=== PATIENT | male | born 1940 | race Caucasian/White ===

== ENCOUNTER 2019-05-31 20:00 | Inpatient (IN) | payer MEDICARE ==
[2019-05-31 20:48] LABS: Basophils # (A) 0.1 k/uL (0-0.2); Basophils % (A) 0 %; Eosinophils # (A) 0.1 k/uL (0-0.7); Eosinophils % (A) 0 %; HCT 40.1 % (39.0-53.0); HGB 13.8 gm/dL (13.0-17.5); Lymphocytes # (A) 0.7 k/uL (1.0-4.8); Lymphocytes % (A) 4 %; MCH 32.6 pg (25.0-35.0); MCHC 34.3 g/dL (31.0-37.0); MCV 94.9 fL (80.0-100.0); Mean Platelet Volume 8.7; Monocytes % (A) 5 %; Neutrophils # (A) 17.9 k/uL (1.3-7.7); Neutrophils % (A) 91 %; Platelet Count 237 k/uL (150-450); RBC 4.22 m/uL (4.30-5.90); RDW 12.4 % (11.5-15.5); WBC 19.8 k/uL (3.8-10.6)
[2019-05-31 20:50] LABS: Appearance,Urine Cloudy (Clear); Bilirubin,Urine Negative (Negative); Blood,Urine Large (Negative); Color,Urine Red; Glucose,Urine (UA) Negative (Negative); Ketones,Urine Negative (Negative); Leukocyte Esterase,Urine Moderate (Negative); Mucus,Urine Rare /hpf; Nitrite,Urine Negative (Negative); PH, Urine 6.5 (5.0-8.0); Protein,Urine 1+ (Negative); RBC,Urine >182 /hpf (0-5); Specific Gravity,Urine 1.016 (1.001-1.035); Urobilinogen,Urine <2.0 mg/dL (<2.0); WBC,Urine 31 /hpf (0-5)
[2019-05-31 21:09] LABS: African American GFR (CKD) >90 (>60 ml/min/1.73 sqM); Anion Gap 9 mmol/L; Blood Urea Nitrogen 18 mg/dL (9-20); Calcium 9.4 mg/dL (8.4-10.2); Carbon Dioxide 26 mmol/L (22-30); Chloride 99 mmol/L (98-107); Glucose 187 mg/dL (74-99); Non-African American GFR(CKD) 81 (>60 ml/min/1.73 sqM); Sodium 134 mmol/L (137-145)
[2019-05-31] MEDS ORDERED: NALOXONE 0.4 MG/ML 1 ML VIAL IV PRN (21:27)
[2019-05-31] MEDS ORDERED: cefTRIAXone IN SWFI 1,000 MG/10 ML SYRINGE IVP STA (21:27)
--- NOTE | 2019-05-31 21:27 | ED ---
Male Urogenital HPI - General Chief complaint: Urogenital Stated complaint: Urinary Retention Time Seen by Provider: 05/31/19 20:05 Source: patient, EMS Mode of arrival: EMS Limitations: no limitations - History of Present Illness Initial comments: The patient is an 78-year-old male with past history of prostate cancer treated with radiation therapy in 2007 who presents to the emergency room with reported hematuria. He currently sees Dr. Wolfe in office. is at bedside and helps provide the history. She states that on Friday the patient began having bright red blood in his urine. They called Dr. Wolfe's office who made an appointment for him to be seen in the office later this week. They did end up going to an urgent care on Friday and the patient was placed on Cipro. As of today the patient has been unable to urinate. He had small dribbling around 10 AM afterwards he began developing x-ray shooting pain and therefore family did bring her into the emergency room. Take him into [facility] where a three-way Ibarra catheter was placed. The patient's bladder was irrigated he had significant blood clots within his bladder. They call discuss case with Dr. Love who recommended the patient be transferred to the hospital for overnight observation. Laboratories his were obtained however they were unable to get a UA offer the patient. Daughter states patient did have a previous issue in 2010 that was similar to this. The patient required Ibarra catheter placement for a short period of time. They deny any fevers or chills. No nausea or vomiting from the patient. He admits to suprapubic tenderness. Denies any bowel issues. There are no alleviating, precipitating factors - Related Data Home Medications Medication Instructions Recorded Confirmed Aspirin EC [Ecotrin Low Dose] 81 mg PO DAILY 05/31/19 06/05/19 Calcium 500mg 500 mg PO SA 05/31/19 06/05/19 Ciprofloxacin HCl [Cipro] 500 mg PO Q12HR 05/31/19 06/05/19 Donepezil [Aricept] 10 mg PO HS 05/31/19 06/05/19 Memantine [Namenda] 10 mg PO HS 05/31/19 06/05/19 Montelukast [Singulair] 10 mg PO HS PRN 05/31/19 06/05/19 Multivitamins, Thera [Multivitamin 1 tab PO DAILY 05/31/19 06/05/19 (formulary)] Pravastatin Sodium [Pravachol] 40 mg PO HS 05/31/19 06/05/19 Melatonin 5 mg PO HS PRN 06/05/19 06/05/19 Previous Rx's Medication Instructions Recorded Tolterodine ER [Detrol LA] 2 mg PO DAILY #10 cap.er.24h 06/04/19 Allergies Allergy/AdvReac Type Severity Reaction Status Date / Time No Known Allergies Allergy Verified 06/05/19 07:44 Review of Systems ROS Statement: Those systems with pertinent positive or pertinent negative responses have been documented in the HPI. ROS Other: All systems not noted in ROS Statement are negative. Past Medical History Past Medical History: Hyperlipidemia Additional Past Medical History / Comment(s): prostate issues, right ear hard of hearing, dementia History of Any Multi-Drug Resistant Organisms: None Reported Additional Past Surgical History / Comment(s): prostate surgery Past Psychological History: No Psychological Hx Reported Smoking Status: Never smoker Past Alcohol Use History: None Reported Past Drug Use History: None Reported General Exam Limitations: no limitations General appearance: alert, in no apparent distress Head exam: Present: atraumatic, normocephalic, normal inspection Eye exam: Present: normal appearance, PERRL, EOMI. Absent: scleral icterus, conjunctival injection, periorbital swelling ENT exam: Present: normal exam, mucous membranes moist Neck exam: Present: normal inspection. Absent: tenderness, meningismus, lymphadenopathy Respiratory exam: Present: normal lung sounds bilaterally. Absent: respiratory distress, wheezes, rales, rhonchi, stridor Cardiovascular Exam: Present: regular rate, normal rhythm, normal heart sounds. Absent: systolic murmur, diastolic murmur, rubs, gallop, clicks GI/Abdominal exam: Present: soft, normal bowel sounds. Absent: distended, tenderness, guarding, rebound, rigid exam: Present: normal inspection, other (Ibarra in appropriate position. mild leakage around ibarra - pink tinged) Extremities exam: Present: normal inspection, full ROM, normal capillary refill. Absent: tenderness, pedal edema, joint swelling, calf tenderness Back exam: Present: normal inspection Neurological exam: Present: alert, CN II-XII intact Psychiatric exam: Present: normal affect, normal mood Skin exam: Present: warm, dry, intact, normal color. Absent: rash Course Vital Signs 05/31/19 05/31/19 20:05 21:53 Temperature 97.8 F Pulse Rate 100 95 Respiratory 18 18 Rate Blood Pressure 166/105 134/75 O2 Sat by Pulse 95 96 Oximetry Medical Decision Making - Medical Decision Making Upon arrival the patient was placed into room 17. A thorough history and physical exam was performed. I did order a dose of morphine for the patient is a he is having recurrence of his pain. I reviewed the transfer packet. I did order a UA and the patient. I did repeat the patient's laboratory studies. The blood cell count is 19.8. Hemoglobin 13.8. Creatinine 0.8. Urinalysis shows large blood, moderate leukocyte Estrace, greater than 182 red blood cells, 31 white blood cells. I did provide the patient with a dose of Rocephin. I also g ave him a dose of did trip and. I called and discussed case with Dr. Solares who accepted admission for the patient. Patient's Ibarra continue to drain without irrigation. He remained in stable condition and was transported - Lab Data Result diagrams: 06/03/19 21:27 06/01/19 06:40 Lab Results 05/31/19 05/31/19 05/31/19 Range/Units 20:18 20:18 20:38 WBC 19.8 H (3.8-10.6) k/uL RBC 4.22 L (4.30-5.90) m/uL Hgb 13.8 (13.0-17.5) gm/dL Hct 40.1 (39.0-53.0) % MCV 94.9 (80.0-100.0) fL MCH 32.6 (25.0-35.0) pg MCHC 34.3 (31.0-37.0) g/dL RDW 12.4 (11.5-15.5) % Plt Count 237 (150-450) k/uL Neutrophils % 91 % Lymphocytes % 4 % Monocytes % 5 % Eosinophils % 0 % Basophils % 0 % Neutrophils # 17.9 H (1.3-7.7) k/uL Lymphocytes # 0.7 L (1.0-4.8) k/uL Monocytes # 1.0 (0-1.0) k/uL Eosinophils # 0.1 (0-0.7) k/uL Basophils # 0.1 (0-0.2) k/uL Sodium 134 L (137-145) mmol/L Potassium 4.0 (3.5-5.1) mmol/L Chloride 99 (98-107) mmol/L Carbon Dioxide 26 (22-30) mmol/L Anion Gap 9 mmol/L BUN 18 (9-20) mg/dL Creatinine 0.89 (0.66-1.25) mg/dL Est GFR (CKD-EPI)AfAm >90 (>60 ml/min/1.73 sqM) Est GFR (CKD-EPI)NonAf 81 (>60 ml/min/1.73 sqM) Glucose 187 H (74-99) mg/dL Calcium 9.4 (8.4-10.2) mg/dL Urine Color Red Urine Appearance Cloudy (Clear) Urine pH 6.5 (5.0-8.0) Ur Specific [place] 1.016 (1.001-1.035) Urine Protein 1+ H (Negative) Urine Glucose (UA) Negative (Negative) Urine Ketones Negative (Negative) Urine Blood Large H (Negative) Urine Nitrite Negative (Negative) Urine Bilirubin Negative (Negative) Urine Urobilinogen <2.0 (<2.0) mg/dL Ur Leukocyte Esterase Moderate H (Negative) Urine RBC >182 H (0-5) /hpf Urine WBC 31 H (0-5) /hpf Urine Mucus Rare H (None) /hpf 06/01/19 06/01/19 06/02/19 Range/Units 06:40 06:40 07:28 WBC 18.4 H 12.2 H (3.8-10.6) k/uL RBC 3.48 L 2.71 L (4.30-5.90) m/uL Hgb 11.4 L 8.6 L D (13.0-17.5) gm/dL Hct 33.5 L 26.1 L (39.0-53.0) % MCV 96.3 96.5 (80.0-100.0) fL MCH 32.9 31.8 (25.0-35.0) pg MCHC 34.2 32.9 (31.0-37.0) g/dL RDW 12.5 12.9 (11.5-15.5) % Plt Count 233 212 (150-450) k/uL Neutrophils % 89 76 % Lymphocytes % 5 13 % Monocytes % 5 8 % Eosinophils % 0 1 % Basophils % 0 0 % Neutrophils # 16.5 H 9.2 H (1.3-7.7) k/uL Lymphocytes # 0.8 L 1.6 (1.0-4.8) k/uL Monocytes # 1.0 1.0 (0-1.0) k/uL Eosinophils # 0.0 0.1 (0-0.7) k/uL Basophils # 0.0 0.0 (0-0.2) k/uL Sodium 134 L (137-145) mmol/L Potassium 5.0 (3.5-5.1) mmol/L Chloride 99 (98-107) mmol/L Carbon Dioxide 28 (22-30) mmol/L Anion Gap 7 mmol/L BUN 18 (9-20) mg/dL Creatinine 0.91 (0.66-1.25) mg/dL Est GFR (CKD-EPI)AfAm >90 (>60 ml/min/1.73 sqM) Est GFR (CKD-EPI)NonAf 79 (>60 ml/min/1.73 sqM) Glucose 143 H (74-99) mg/dL Calcium 9.2 (8.4-10.2) mg/dL Urine Color Urine Appearance (Clear) Urine pH (5.0-8.0) Ur Specific [place] (1.001-1.035) Urine Protein (Negative) Urine Glucose (UA) (Negative) Urine Ketones (Negative) Urine Blood (Negative) Urine Nitrite (Negative) Urine Bilirubin (Negative) Urine Urobilinogen (<2.0) mg/dL Ur Leukocyte Esterase (Negative) Urine RBC (0-5) /hpf Urine WBC (0-5) /hpf Urine Mucus (None) /hpf Disposition Clinical Impression: Hematuria, Leukocytosis Disposition: ADMITTED IP TO THIS HOSP Condition: Stable Is patient prescribed a controlled substance at d/c from ED?: No Decision to Admit Reason: Admit from EC Decision Date: 05/31/19 Decision Time: 21:27
[2019-05-31] MEDS ORDERED: OXYBUTYNIN CHLORIDE 5 MG TAB PO STA (21:30)
[2019-05-31] MEDS: MORPHINE SULFATE 4 MG/ML SYRINGE IV PRN (22:41)
[2019-05-31] MEDS: SODIUM CHLORIDE 0.9% IRRIGATIO 3,000 ML IRRIGATION PRN (23:21)
[2019-05-31] MEDS: MONTELUKAST 10 MG TAB PO SCH (23:22)
[2019-05-31] MEDS: MEMANTINE 10 MG TAB PO SCH (23:22)
[2019-05-31] MEDS: DONEPEZIL 10 MG TAB PO SCH (23:22)
[2019-05-31] MEDS: SODIUM CHLORIDE 0.45% 1,000 ML IV SCH (23:22)
[2019-06-01] MEDS: MORPHINE SULFATE 4 MG/ML SYRINGE IV PRN (03:15)
[2019-06-01] MEDS: SODIUM CHLORIDE 0.9% IRRIGATIO 3,000 ML IRRIGATION PRN ×4 (04:07→10:48)
[2019-06-01 07:11] LABS: Basophils % (A) 0 %; Eosinophils % (A) 0 %; HCT 33.5 % (39.0-53.0); HGB 11.4 gm/dL (13.0-17.5); Lymphocytes # (A) 0.8 k/uL (1.0-4.8); Lymphocytes % (A) 5 %; MCH 32.9 pg (25.0-35.0); MCHC 34.2 g/dL (31.0-37.0); MCV 96.3 fL (80.0-100.0); Mean Platelet Volume 7.8; Monocytes % (A) 5 %; Neutrophils # (A) 16.5 k/uL (1.3-7.7); Neutrophils % (A) 89 %; Platelet Count 233 k/uL (150-450); RBC 3.48 m/uL (4.30-5.90); RDW 12.5 % (11.5-15.5); WBC 18.4 k/uL (3.8-10.6)
[2019-06-01 07:20] LABS: African American GFR (CKD) >90 (>60 ml/min/1.73 sqM); Anion Gap 7 mmol/L; Blood Urea Nitrogen 18 mg/dL (9-20); Calcium 9.2 mg/dL (8.4-10.2); Carbon Dioxide 28 mmol/L (22-30); Chloride 99 mmol/L (98-107); Glucose 143 mg/dL (74-99); Non-African American GFR(CKD) 79 (>60 ml/min/1.73 sqM); Sodium 134 mmol/L (137-145)
[2019-06-01] MEDS: MULTIVITAMINS, THERA 1 EACH TAB PO SCH (11:04)
[2019-06-01] MEDS: SODIUM CHLORIDE 0.45% 1,000 ML IV SCH (11:04)
--- NOTE | 2019-06-01 16:45 | P.GSHP ---
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 He was last seen by Dr. Wolfe in the office in July 2015. His PSA level at that time was 0.19. The patient began to experience gross hematuria on 05/29/2019. He went to an urgent care center the following day and was placed on ciprofloxacin. Yesterday, he experienced difficulty voiding and presented to the emergency room at [facility]. He was subsequently transferred to [facility] and admitted. He has a three-way Franco catheter in place, with continuous bladder irrigation running. Multiple clots have been irrigated from his bladder. - Constitutional Constitutional: Denies chills, Denies fever - Gastrointestinal Gastrointestinal: Denies nausea, Denies vomiting - Genitourinary (Female) Genitourinary: Reports hematuria Past Medical History Past Medical History: Hyperlipidemia Additional Past Medical History / Comment(s): prostate issues, right ear hard of hearing, dementia History of Any Multi-Drug Resistant Organisms: None Reported Additional Past Surgical History / Comment(s): prostate surgery Past Psychological History: No Psychological Hx Reported Smoking Status: Never smoker Past Alcohol Use History: None Reported Past Drug Use History: None Reported Medications and Allergies Home Medications Medication Instructions Recorded Confirmed Type Aspirin EC [Ecotrin Low Dose] 81 mg PO DAILY 05/31/19 05/31/19 History Calcium 500mg 500 mg PO SA 05/31/19 05/31/19 History Ciprofloxacin HCl [Cipro] 500 mg PO Q12HR 05/31/19 05/31/19 History Donepezil [Aricept] 10 mg PO HS 05/31/19 05/31/19 History Memantine [Namenda] 10 mg PO HS 05/31/19 05/31/19 History Montelukast [Singulair] 10 mg PO HS PRN 05/31/19 05/31/19 History Multivitamins, Thera [Multivitamin 1 tab PO DAILY 05/31/19 05/31/19 History (formulary)] Pravastatin Sodium [Pravachol] 40 mg PO HS 05/31/19 05/31/19 History Allergies Allergy/AdvReac Type Severity Reaction Status Date / Time No Known Allergies Allergy Verified 05/31/19 21:57 Surgical - Exam Vital Signs Temp Pulse Resp BP Pulse Ox 97.8 F 100 18 166/105 95 05/31/19 20:05 05/31/19 20:05 05/31/19 20:05 05/31/19 20:05 05/31/19 20:05 - General well developed, well nourished, no distress - Respiratory normal respiratory effort - Abdomen Abdomen: soft, non tender, no guarding, no rigid, no rebound - Genitourinary normal penis with no external lesions, testicles non-tender Results - Labs 06/01/19 06:40 06/01/19 06:40 Abnormal Lab Results - Last 24 Hours (Table) 05/31/19 05/31/19 05/31/19 Range/Units 20:18 20:18 20:38 WBC 19.8 H (3.8-10.6) k/uL RBC 4.22 L (4.30-5.90) m/uL Hgb (13.0-17.5) gm/dL Hct (39.0-53.0) % Neutrophils # 17.9 H (1.3-7.7) k/uL Lymphocytes # 0.7 L (1.0-4.8) k/uL Sodium 134 L (137-145) mmol/L Glucose 187 H (74-99) mg/dL Urine Protein 1+ H (Negative) Urine Blood Large H (Negative) Ur Leukocyte Esterase Moderate H (Negative) Urine RBC >182 H (0-5) /hpf Urine WBC 31 H (0-5) /hpf Urine Mucus Rare H (None) /hpf 06/01/19 06/01/19 Range/Units 06:40 06:40 WBC 18.4 H (3.8-10.6) k/uL RBC 3.48 L (4.30-5.90) m/uL Hgb 11.4 L (13.0-17.5) gm/dL Hct 33.5 L (39.0-53.0) % Neutrophils # 16.5 H (1.3-7.7) k/uL Lymphocytes # 0.8 L (1.0-4.8) k/uL Sodium 134 L (137-145) mmol/L Glucose 143 H (74-99) mg/dL Urine Protein (Negative) Urine Blood (Negative) Ur Leukocyte Esterase (Negative) Urine RBC (0-5) /hpf Urine WBC (0-5) /hpf Urine Mucus (None) /hpf Microbiology - Last 24 Hours (Table) 05/31/19 20:18 Urine Culture - Preliminary Urine,Voided Diabetes panel 05/31/19 06/01/19 Range/Units 20:38 06:40 Sodium 134 L 134 L (137-145) mmol/L Potassium 4.0 5.0 (3.5-5.1) mmol/L Chloride 99 99 (98-107) mmol/L Carbon Dioxide 26 28 (22-30) mmol/L BUN 18 18 (9-20) mg/dL Creatinine 0.89 0.91 (0.66-1.25) mg/dL Glucose 187 H 143 H (74-99) mg/dL Calcium 9.4 9.2 (8.4-10.2) mg/dL Calcium panel 05/31/19 06/01/19 Range/Units 20:38 06:40 Calcium 9.4 9.2 (8.4-10.2) mg/dL Pituitary panel 05/31/19 06/01/19 Range/Units 20:38 06:40 Sodium 134 L 134 L (137-145) mmol/L Potassium 4.0 5.0 (3.5-5.1) mmol/L Chloride 99 99 (98-107) mmol/L Carbon Dioxide 26 28 (22-30) mmol/L BUN 18 18 (9-20) mg/dL Creatinine 0.89 0.91 (0.66-1.25) mg/dL Glucose 187 H 143 H (74-99) mg/dL Calcium 9.4 9.2 (8.4-10.2) mg/dL Adrenal panel 05/31/19 06/01/19 Range/Units 20:38 06:40 Sodium 134 L 134 L (137-145) mmol/L Potassium 4.0 5.0 (3.5-5.1) mmol/L Chloride 99 99 (98-107) mmol/L Carbon Dioxide 26 28 (22-30) mmol/L BUN 18 18 (9-20) mg/dL Creatinine 0.89 0.91 (0.66-1.25) mg/dL Glucose 187 H 143 H (74-99) mg/dL Calcium 9.4 9.2 (8.4-10.2) mg/dL Assessment and Plan (1) Gross hematuria Current Visit: Yes Status: Acute Code(s): R31.0 - GROSS HEMATURIA SNOMED Code(s): 342306461 Plan: It is presumed that Mr. Fernández's gross hematuria is due to radiation cystitis. I was able to manually irrigate multiple clots from the bladder. Following that, the urine was pink tinged with continuous bladder irrigation running. The continuous bladder irrigation will be continued overnight, with manual irrigation being performed as needed. A renal ultrasound will be obtained to exclude upper tract abnormalities. The CBC will be repeated tomorrow morning. The patient and his family are aware of the possible need for cystoscopy with fulguration. Incidentally, his CODE STATUS was changed to no code at the patient's request. Time with Patient: Greater than 30
[2019-06-01] MEDS: PRAVASTATIN SODIUM 40 MG TAB PO SCH (21:08)
[2019-06-01] MEDS: MEMANTINE 10 MG TAB PO SCH (21:08)
[2019-06-01] MEDS: DONEPEZIL 10 MG TAB PO SCH (21:08)
[2019-06-01] MEDS: MONTELUKAST 10 MG TAB PO SCH (21:08)
[2019-06-01] MEDS: SULFAMETHOX-TMP 800-160MG 1 EACH TAB PO SCH (21:09)
--- NOTE | 2019-06-01 22:45 | US ---
EXAMINATION TYPE: US kidneys/renal and bladder DATE OF EXAM: 06/01/2019 COMPARISON: NONE CLINICAL HISTORY: Hematuria. Personal history of prostate cancer. EXAM MEASUREMENTS: Right Kidney: 9.6 x 5.0 x 5.4 cm Left Kidney: 10.4 x 5.3 x 5.1 cm Left renal imaged first as patient was laying that way. Technically difficult study, performed portab ly. Right Kidney: cyst lower pole measures 4.2 x 4.4 x 3.3 cm. Left Kidney: Large cystic area adjacent to left kidney measures 10.1 x 8.2 x 8.9 cm, probable renal c yst. Bladder: not seen, patient has catheter. IMPRESSION: Bladder empty during the exam. Bilateral renal cysts and largest cyst on the left side measures 10 cm . No hydronephrosis. Franco catheter in the urinary bladder. Bladder was empty during the exam. Bladder not well evaluated.
[2019-06-02] MEDS: SODIUM CHLORIDE 0.45% 1,000 ML IV SCH ×3 (01:41→20:20)
[2019-06-02] MEDS: MULTIVITAMINS, THERA 1 EACH TAB PO SCH (08:06)
[2019-06-02] MEDS: SULFAMETHOX-TMP 800-160MG 1 EACH TAB PO SCH ×2 (08:06→20:19)
[2019-06-02 08:09] LABS: Basophils % (A) 0 %; Eosinophils # (A) 0.1 k/uL (0-0.7); Eosinophils % (A) 1 %; HCT 26.1 % (39.0-53.0); Lymphocytes # (A) 1.6 k/uL (1.0-4.8); Lymphocytes % (A) 13 %; MCH 31.8 pg (25.0-35.0); MCHC 32.9 g/dL (31.0-37.0); MCV 96.5 fL (80.0-100.0); Mean Platelet Volume 7.8; Monocytes % (A) 8 %; Neutrophils # (A) 9.2 k/uL (1.3-7.7); Neutrophils % (A) 76 %; Platelet Count 212 k/uL (150-450); RBC 2.71 m/uL (4.30-5.90); RDW 12.9 % (11.5-15.5); WBC 12.2 k/uL (3.8-10.6)
[2019-06-02 08:11] LABS: HGB 8.6 gm/dL (13.0-17.5)
[2019-06-02] MEDS: SODIUM CHLORIDE 0.9% IRRIGATIO 3,000 ML IRRIGATION PRN ×2 (08:49→20:24)
--- NOTE | 2019-06-02 14:34 | P.PN ---
Progress Note - Text Progress Note Date: 06/02/19 The patient is afebrile and normotensive. His bladder has been irrigated periodically through the night and small clots were removed. I irrigated the bladder at noon today and several large clots were obtained. The clots appear to be old clots and not from fresh bleeding. Hemoglobin today is 8.6. The patient had a urine culture obtained on 01/28 and this apparently is growing E. coli. 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 He will be continue on Rocephin. The bladder will be continued irrigate did periodically until all clots have been removed. At least at this time I do not feel that cystoscopy under anesthesia will be necessary.
[2019-06-02] MEDS: PRAVASTATIN SODIUM 40 MG TAB PO SCH (20:19)
[2019-06-02] MEDS: DONEPEZIL 10 MG TAB PO SCH (20:20)
[2019-06-02] MEDS: MEMANTINE 10 MG TAB PO SCH (20:20)
[2019-06-02] MEDS: MONTELUKAST 10 MG TAB PO SCH (20:20)
[2019-06-02 21:22] LABS: HCT 20.8 % (39.0-53.0); HGB 7.2 gm/dL (13.0-17.5); MCH 33.5 pg (25.0-35.0); MCHC 34.7 g/dL (31.0-37.0); MCV 96.4 fL (80.0-100.0); Mean Platelet Volume 8.2; Platelet Count 227 k/uL (150-450); RBC 2.16 m/uL (4.30-5.90); RDW 13.1 % (11.5-15.5)
--- NOTE | 2019-06-03 07:41 | P.PN ---
Progress Note - Text Progress Note Date: 06/03/19 The patient is afebrile. He continues to have gross hematuria and his hemoglobin last night was 7.2. He will be given 2 units of packed red blood cells today. Cystoscopy under anesthesia with evacuation of blood clots and cautery of any active bleeding will be set up later in the afternoon. I reviewed the procedure with the patient and his daughter and they have no further questions.
[2019-06-03] MEDS: MULTIVITAMINS, THERA 1 EACH TAB PO SCH (09:48)
[2019-06-03] MEDS: SULFAMETHOX-TMP 800-160MG 1 EACH TAB PO SCH ×2 (09:48→09:55)
[2019-06-03] MEDS ORDERED: IV FLUID CONTINUATION 1,000 ML IV ONE (15:49)
[2019-06-03] MEDS ORDERED: PHENYLEPHRINE-0.9% NACL SYG 1 MG/10 ML SYRINGE ONE (16:34)
[2019-06-03] MEDS ORDERED: PROPOFOL 10 MG/ML 20 ML VIAL IV ONE (16:34)
[2019-06-03] MEDS ORDERED: fentaNYL (PF) 50 MCG/ML 2 ML AMP ONE (16:34)
[2019-06-03] MEDS ORDERED: SUCCINYLCHOLINE CHLORIDE 100 MG/5 ML SYR IV ONE (16:34)
[2019-06-03] MEDS ORDERED: LIDOCAINE 1% INJ 10MG/ML (20 ML MDV) ONE (16:34)
[2019-06-03 17:14] LABS: HCT 22.9 % (39.0-53.0); HGB 7.9 gm/dL (13.0-17.5); MCH 31.6 pg (25.0-35.0); MCHC 34.5 g/dL (31.0-37.0); MCV 91.6 fL (80.0-100.0); Mean Platelet Volume 7.9; Platelet Count 182 k/uL (150-450); RDW 14.3 % (11.5-15.5); WBC 10.8 k/uL (3.8-10.6)
--- NOTE | 2019-06-03 17:39 | P.OP ---
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 Anesthesia: SHIRLENE Surgeon: Eriberto Wolfe Estimated Blood Loss (ml): 5 Pathology: none sent Condition: stable Disposition: PACU Indications for Procedure: The patient is an 78-year-old male admitted on 1215 due to gross hematuria. He has a history of radiation therapy for treatment of prostate cancer and was discovered to have an E. coli urinary tract infection on 05/30. He continues to have gross hematuria despite placement of a catheter. It has become impossible to irrigate clots from the bladder. Cystoscopy under anesthesia is planned to remove all clots and to further investigate the cause of the hematuria. Description of Procedure: The patient was taken to the operating suite where adequate general anesthesia via orotracheal intubation was instituted. His Franco catheter was removed. He was placed in the dorsal lithotomy position with his legs suspended from padded Roc stirrups. The genitalia was prepped with Betadine solution and draped in sterile fashion. The 23-[place] cystoscope sheath with 30 lens was passed through the urethra and into the bladder. The anterior urethra was unremarkable. Ectatic vessels were present within the prostate consistent with previous radiation therapy. There was some fixation at the bladder neck secondary to previous radiation therapy which made movement of the cystoscope at the bladder neck difficult. A large amount of clot was present in the bladder and was irrigated from the bladder using the helical evacuator. I estimate the between 12 and 16 ounces of clot was present. The bladder was reexamined following removal of clots. Both ureteral orifices were of normal location and configuration and effluxed clear urine. The bladder showed evidence of severe trabeculation with cellules. Numerous large ectatic vessels were present consistent with previous radiation therapy. At the bladder neck at 3:00 and 10:00 active bleeding vessels were noted. On the right posterior bladder wall there appeared to be an attenuated area which could be a cellule which had been overdistended. A definite bladder perforation was not noted. Using the Bugbee electrode the active bleeding vessels at the bladder neck were cauterized. There was some slight oozing in the region of the right posterior bladder wall in the area of attenuation and this was also cauterized. At the completion of the procedure hemostasis appeared excellent. The cystoscope was withdrawn. An 18-[place] Franco catheter was inserted and left to gravity drainage. Catheter was irrigated and the irrigant continued to remain clear. Patient tolerated procedure well and left the operative room awake and in satisfactory condition. Blood loss during the procedure was less than 5 mL.
[2019-06-03 17:42] VITALS: RESP 16
[2019-06-03] MEDS ORDERED: ACETAMINOPHEN TAB 500 MG TAB PO PRN (19:22)
[2019-06-03] MEDS ORDERED: diphenhydrAMINE 25 MG CAP PO PRN (19:24)
[2019-06-03] MEDS: MONTELUKAST 10 MG TAB PO SCH (19:53)
[2019-06-03] MEDS: DONEPEZIL 10 MG TAB PO SCH (19:53)
[2019-06-03] MEDS: PRAVASTATIN SODIUM 40 MG TAB PO SCH (19:53)
[2019-06-03] MEDS: MEMANTINE 10 MG TAB PO SCH (19:54)
[2019-06-03] MEDS ORDERED: SODIUM CHLORIDE 0.9% 1,000 ML IV SCH (20:00)
[2019-06-03] MEDS ORDERED: SODIUM CHLORIDE 0.45% 1,000 ML IV SCH (20:00)
[2019-06-03 22:04] LABS: HCT 24.3 % (39.0-53.0); HGB 8.5 gm/dL (13.0-17.5); MCH 32.6 pg (25.0-35.0); MCHC 35.2 g/dL (31.0-37.0); MCV 92.7 fL (80.0-100.0); Mean Platelet Volume 8.1; Platelet Count 221 k/uL (150-450); RBC 2.62 m/uL (4.30-5.90); WBC 24.5 k/uL (3.8-10.6)
[2019-06-03] MEDS ORDERED: SODIUM CHLORIDE 0.9% 500 ML 500 ML IV ONE (22:30)
[2019-06-03] MEDS: SODIUM CHLORIDE 0.45% 1,000 ML IV SCH (23:12)
[2019-06-04 07:34] VITALS: BP 147/69; PULSE 91; TEMP 97.9
[2019-06-04] MEDS ORDERED: OXYBUTYNIN CHLORIDE 5 MG TAB PO STA (07:38)
[2019-06-04] MEDS: MULTIVITAMINS, THERA 1 EACH TAB PO SCH (08:07)
[2019-06-04] MEDS: SULFAMETHOX-TMP 800-160MG 1 EACH TAB PO SCH (08:08)
--- NOTE | 2019-06-04 09:07 | P.PN ---
Progress Note - Text Progress Note Date: 06/04/19 The patient is afebrile and normotensive. He is intermittently confused and has required supervision and assistance getting out of bed. He is tolerating a diet. His urine has been clear since surgery yesterday afternoon. His hemoglobin immediately postop was 8.5. I had a long discussion with the patient's . She would like the patient to go home instead of to a rehab facility as she feels that he would be less disoriented at home. It's unclear if he is strong enough to ambulate at home and will be given a trial today to see if this may be possible. If he does well he could be discharged later today. His catheter will remain in place for approximately 10 days due to the weakened area on the right posterior bladder wall. The patient's has taken care of her catheter before and I reviewed this with her. She will call me on 06/10 and we will determine at that time when his catheter can come out. He has had occasional bladder spasms and will be started on Detrol LA to diminish this. He had been on Bactrim prior to his admission and this will be continued 1 twice a day for 3 days and then 1 daily until his catheter is removed.
--- NOTE | 2019-06-04 11:49 | P.DS ---
Providers Date of admission: 06/02/19 10:30 Expected date of discharge: 06/04/19 Attending physician: Anton Solares Primary care physician: Hector Hawley [facility] Course: The patient was admitted as a transfer from the [facility] emergency room due to gross hematuria presumed to be secondary to irradiation cystitis. A 3-way catheter had been placed in the emergency room prior to his transfer. His hemoglobin at the time of admission was 11.4. He was initially seen by and his bladder was irrigated and a few clots were removed. He was continued on continuous irrigation with the catheter. His hemoglobin in the morning of 06/02 was 8.6. His bladder was reirrigated that day and again only a few clots could be removed. His hemoglobin fell to 7.2 that evening. He was given 2 units of packed red blood cells on the morning of 06/03 for treatment of his anemia related to acute blood loss. Cystoscopy under general anesthesia was performed by Dr. Abernathy and a large amount of old clotted blood was irrigated from the bladder. Active bleeding was noted from the bladder neck at 3 and 10:00 and these were cauterized. There was an area on the right posterior bladder wall which appeared to be a cellule which had become thinned out by bladder overdistention. A 20-Danish Franco catheter was inserted at the end of the procedure The patient's urine remained clear through the night and the following morning. The patient was discharged on 06/04 at which time he was ambulatory and tolerating a regular diet. It is presumed that the hematuria was related to irradiation cystitis. He was noted to have an E. coli urinary tract infection when he was seen in the [facility] emergency room which could have been a contributory factor as well. The patient's catheter will be left in place for 10 days prior to removal. He will be continued on Cipro 500 mg twice a day for 3 days following discharge and then 500 mg daily until his catheter is removed. Patient Condition at Discharge: Stable Plan - Discharge Summary Discharge Rx Participant: No New Discharge Prescriptions: New Tolterodine ER [Detrol LA] 2 mg PO DAILY #10 cap.er.24h No Action Multivitamins, Thera [Multivitamin (formulary)] 1 tab PO DAILY Aspirin EC [Ecotrin Low Dose] 81 mg PO DAILY Pravastatin Sodium [Pravachol] 40 mg PO HS Montelukast [Singulair] 10 mg PO HS PRN PRN Reason: Allergy Symptoms Memantine [Namenda] 10 mg PO HS Donepezil [Aricept] 10 mg PO HS Calcium 500mg 500 mg PO SA Ciprofloxacin HCl [Cipro] 500 mg PO Q12HR Discharge Medication List Aspirin EC [Ecotrin Low Dose] 81 mg PO DAILY 05/31/19 [History] Calcium 500mg 500 mg PO SA 05/31/19 [History] Ciprofloxacin HCl [Cipro] 500 mg PO Q12HR 05/31/19 [History] Donepezil [Aricept] 10 mg PO HS 05/31/19 [History] Memantine [Namenda] 10 mg PO HS 05/31/19 [History] Montelukast [Singulair] 10 mg PO HS PRN 05/31/19 [History] Multivitamins, Thera [Multivitamin (formulary)] 1 tab PO DAILY 05/31/19 [History] Pravastatin Sodium [Pravachol] 40 mg PO HS 05/31/19 [History] Tolterodine ER [Detrol LA] 2 mg PO DAILY #10 cap.er.24h 06/04/19 [Rx] Follow up Appointment(s)/Referral(s): Hector Freeman DO [Primary Care Provider] - 2 Weeks Activity/Diet/Wound Care/Special Instructions: To call Dr Wolfe on 06/10. Continue cipro 500 mg 1 twice a day for 3 days and then 1 daily until catheter is removed. Discharge Disposition: HOME SELF-CARE
== END 2019-06-04 14:30 | disposition home health service (06) | DRG 664 ==
LOC: EC 20:00 → 4SSUR 21:28 → OBSVTOIN 06-02 10:30
PROVIDERS: ADMIT Urology; ATTEND Urology
PROC: 0W3R8ZZ Control Bleeding in Genitourinary Tract, Via Natural or Artificial Opening Endoscopic (ICD-10-PCS; 2019-06-03)
PROC: 0TCB8ZZ Extirpation of Matter from Bladder, Via Natural or Artificial Opening Endoscopic (ICD-10-PCS; principal; 2019-06-03 13:25)
DX: N30.41 Irradiation cystitis with hematuria (principal); B96.20 Unspecified Escherichia coli [E. coli] as the cause of diseases classified elsewhere; E78.5 Hyperlipidemia, unspecified; F03.90 Unspecified dementia, unspecified severity, without behavioral disturbance, psychotic disturbance, mood disturbance, and anxiety; H91.91 Unspecified hearing loss, right ear; N32.89 Other specified disorders of bladder; Y84.2 Radiological procedure and radiotherapy as the cause of abnormal reaction of the patient, or of later complication, without mention of misadventure at the time of the procedure; Z79.899 Other long term (current) drug therapy; Z79.82 Long term (current) use of aspirin; Z85.46 Personal history of malignant neoplasm of prostate; Z92.3 Personal history of irradiation; Z66 Do not resuscitate
CPT/HCPCS: 36415; 51798; 76770; 80048; 81001; 85025; 85027; 86850; 86900; 86901; 86920; 87040; 87086; 93005; 96374; 96375; 99285

== ENCOUNTER 2019-06-05 04:15 | Inpatient (IN) | payer MEDICARE ==
--- NOTE | 2019-06-05 06:18 | ED ---
Male Urogenital HPI - General Chief complaint: Urogenital Stated complaint: Urogenital Time Seen by Provider: 06/05/19 04:25 Source: family, EMS Mode of arrival: EMS Limitations: altered mental status (dementia) - History of Present Illness Initial comments: this patient is an 78-year-old man who presents with complaint that his Franco catheter seems to be obstructed and the urine is draining around it. Patient is not able to provide any history due to underlying dementia. History comes patient's and daughter. They state that he left the hospital is been afternoon and after getting home the catheter stopped draining and urine was leaking around it. The patient had been admitted in the hospital for hematuria. He had cystoscopy with cauterization of vessels lining the bladder. The patient was discharged with instruction that the catheter was to be left in for 10 days. Patient currently taking ciprofloxacin. No fevers. No vomiting. MD Complaint: other (Franco catheter obstructed) -: hour(s) Consistency: constant Improves with: none Worsens with: none indwelling catheter - Related Data Home Medications Medication Instructions Recorded Confirmed Aspirin EC [Ecotrin Low Dose] 81 mg PO DAILY 05/31/19 05/31/19 Calcium 500mg 500 mg PO SA 05/31/19 05/31/19 Ciprofloxacin HCl [Cipro] 500 mg PO Q12HR 05/31/19 05/31/19 Donepezil [Aricept] 10 mg PO HS 05/31/19 05/31/19 Memantine [Namenda] 10 mg PO HS 05/31/19 05/31/19 Montelukast [Singulair] 10 mg PO HS PRN 05/31/19 05/31/19 Multivitamins, Thera [Multivitamin 1 tab PO DAILY 05/31/19 05/31/19 (formulary)] Pravastatin Sodium [Pravachol] 40 mg PO HS 05/31/19 05/31/19 Previous Rx's Medication Instructions Recorded Tolterodine ER [Detrol LA] 2 mg PO DAILY #10 cap.er.24h 06/04/19 Allergies Allergy/AdvReac Type Severity Reaction Status Date / Time No Known Allergies Allergy Verified 05/31/19 21:57 Review of Systems ROS Statement: Those systems with pertinent positive or pertinent negative responses have been documented in the HPI. ROS Other: All systems not noted in ROS Statement are negative. Limitations: ROS unobtainable due to patients medical condition (dementia) Constitutional: Reports: weakness (generalized). Denies: fever Gastrointestinal: Denies: abdominal pain, vomiting Genitourinary: Reports: as per HPI, hematuria Past Medical History Past Medical History: Hyperlipidemia Additional Past Medical History / Comment(s): prostate issues, right ear hard of hearing, dementia History of Any Multi-Drug Resistant Organisms: None Reported Additional Past Surgical History / Comment(s): prostate surgery Past Psychological History: No Psychological Hx Reported Smoking Status: Never smoker Past Alcohol Use History: None Reported Past Drug Use History: None Reported General Exam General appearance: alert, in no apparent distress Head exam: Present: atraumatic, normocephalic Respiratory exam: Present: normal lung sounds bilaterally. Absent: respiratory distress, wheezes, rales, rhonchi, stridor Cardiovascular Exam: Present: regular rate, normal rhythm, normal heart sounds. Absent: systolic murmur, diastolic murmur, rubs, gallop GI/Abdominal exam: Present: soft. Absent: distended, tenderness, guarding, rebound exam: Present: normal inspection, other (indwelling Franco catheter) Extremities exam: Present: normal inspection, normal capillary refill. Absent: pedal edema Neurological exam: Present: alert Skin exam: Present: warm, dry, intact, normal color. Absent: rash Course Vital Signs 06/05/19 06/05/19 04:19 06:19 Temperature 98.5 F Pulse Rate 91 Respiratory 18 18 Rate Blood Pressure 135/69 128/63 O2 Sat by Pulse 95 100 Oximetry Disposition Clinical Impression: Obstruction of Franco catheter Disposition: HOME SELF-CARE Condition: Good Instructions (If sedation given, give patient instructions): Franco Catheter Placement and Care (ED) Is patient prescribed a controlled substance at d/c from ED?: No Referrals: Hector Freeman DO [Primary Care Provider] - 1-2 days Eriberto Wolfe MD [STAFF PHYSICIAN] - 1-2 days
[2019-06-05] MEDS ORDERED: ACETAMINOPHEN TAB 325 MG TAB PO PRN (07:21)
[2019-06-05] MEDS ORDERED: NALOXONE 0.4 MG/ML 1 ML VIAL IV PRN (07:21)
[2019-06-05] MEDS ORDERED: MONTELUKAST 10 MG TAB PO PRN (07:25)
[2019-06-05 07:45] LABS: Basophils % (A) 0 %; Eosinophils # (A) 0.1 k/uL (0-0.7); Eosinophils % (A) 0 %; HCT 22.2 % (39.0-53.0); HGB 7.8 gm/dL (13.0-17.5); Lymphocytes # (A) 0.8 k/uL (1.0-4.8); Lymphocytes % (A) 4 %; MCH 32.5 pg (25.0-35.0); MCHC 35.4 g/dL (31.0-37.0); MCV 91.9 fL (80.0-100.0); Mean Platelet Volume 8.1; Monocytes # (A) 1.5 k/uL (0-1.0); Monocytes % (A) 8 %; Neutrophils # (A) 16.9 k/uL (1.3-7.7); Neutrophils % (A) 86 %; Platelet Count 270 k/uL (150-450); Poikilocytosis Slight; RBC 2.41 m/uL (4.30-5.90); RDW 15.4 % (11.5-15.5); WBC 19.6 k/uL (3.8-10.6)
[2019-06-05 07:56] LABS: Calcium 8.5 mg/dL (8.4-10.2); Potassium 4.2 mmol/L (3.5-5.1)
[2019-06-05] MEDS ORDERED: CALCIUM CARBONATE 500 MG CHEWABLE PO SCH (09:00)
[2019-06-05] MEDS: MULTIVITAMINS, THERA 1 EACH TAB PO SCH (10:46)
[2019-06-05] MEDS: CIPROFLOXACIN HCL 500 MG TAB PO SCH ×2 (10:46→20:57)
[2019-06-05] MEDS: OXYBUTYNIN XL 5 MG TAB.ER.24 PO SCH (10:46)
[2019-06-05] MEDS: ASPIRIN 81 MG PO SCH ×2 (10:46→10:47)
[2019-06-05] MEDS: DONEPEZIL 10 MG TAB PO SCH (20:57)
[2019-06-05] MEDS: PRAVASTATIN SODIUM 40 MG TAB PO SCH (20:57)
[2019-06-05] MEDS: MEMANTINE 10 MG TAB PO SCH (20:57)
--- NOTE | 2019-06-05 21:40 | P.HPIM ---
History of Present Illness H&P Date: 06/05/19 Chief Complaint: Block Franco catheter History of presenting complaint: This is a pleasant 78-year-old patient of Dr. Chandan Segura. Patient had a prior radiation treatment to the prostate for prostate cancer. Patient is having severe hematuria not being controlled by Franco catheter and was admitted to the hospital for 5 days being discharged yesterday. On June 03 patient underwent cystoscopy with cauterization of bleeding vessels. 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 Patient was discharged home yesterday. Normally patient is able to get about. Since he's been in the hospital is not really able to walk much , was very weak and tired. Also the Franco catheter was blocked and urine was leaking around it. Since he had come in for a catheter was adjusted and he started making urine. There is no blood in the same. Patient is barely able to make it around right now. Patient's has dementia with able to carry out a simple conversation patient's son is the bedside. They looking at The patient to rehab. Denies any chest pain palpitations or d izziness dizziness and tired able to tolerate some diet. Denies any abdominal pain. No fever or chills. Review of systems: GEN.: Tired EYES: None HEENT: None NECK: None RESPIRATORY: None CARDIOVASCULAR: None GASTROINTESTINAL: None GENITOURINARY: As above MUSCULOSKELETAL: Some joint pains LYMPHATICS: None HEMATOLOGICAL: None PSYCHIATRY: Forgetful NEUROLOGICAL: None Social history: Does not smoke or drink alcohol. Lives with his . Family history: Reviewed, noncontributory to presentation Physical examination: VITAL SIGNS: 97.6, 72, 16, 126/54, 94% room air GENERAL: BMI 21.6, laying in bed comfortable. EYES: [Pupils equal. Conjunctiva pale. HEENT: External appearance of nose and ears normal, oral cavity grossly normal decreased hearing. NECK: JVD not raised; masses not palpable. HEART: First and second heart sounds are normal; no edema. LUNGS: Respiratory rate normal; clear to auscultation. ABDOMEN: Soft, nontender, liver spleen not palpable, no masses palpable. Franco catheter PSYCH: [Patient is able to answer simple questions l. NEUROLOGICAL: Cranial nerves grossly intact; no facial asymmetry, power and sensation grossly intact. 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 Hold off any Lovenox because of hematuria. Home medications. Continued. Fall precautions. PTOT has been consulted. Both case coordinator and oncology social worker will be consulted for placement. We'll add iron tablets. Past Medical History Past Medical History: Hyperlipidemia Additional Past Medical History / Comment(s): prostate issues, right ear hard of hearing, dementia History of Any Multi-Drug Resistant Organisms: None Reported Additional Past Surgical History / Comment(s): prostate surgery Past Psychological History: No Psychological Hx Reported Smoking Status: Never smoker Past Alcohol Use History: None Reported Past Drug Use History: None Reported Medications and Allergies Home Medications Medication Instructions Recorded Confirmed Type Aspirin EC [Ecotrin Low Dose] 81 mg PO DAILY 05/31/19 06/05/19 History Calcium 500mg 500 mg PO SA 05/31/19 06/05/19 History Ciprofloxacin HCl [Cipro] 500 mg PO Q12HR 05/31/19 06/05/19 History Donepezil [Aricept] 10 mg PO HS 05/31/19 06/05/19 History Memantine [Namenda] 10 mg PO HS 05/31/19 06/05/19 History Montelukast [Singulair] 10 mg PO HS PRN 05/31/19 06/05/19 History Multivitamins, Thera [Multivitamin 1 tab PO DAILY 05/31/19 06/05/19 History (formulary)] Pravastatin Sodium [Pravachol] 40 mg PO HS 05/31/19 06/05/19 History Tolterodine ER [Detrol LA] 2 mg PO DAILY #10 cap.er.24h 06/04/19 06/05/19 Rx Melatonin 5 mg PO HS PRN 06/05/19 06/05/19 History Allergies Allergy/AdvReac Type Severity Reaction Status Date / Time No Known Allergies Allergy Verified 06/05/19 07:44 Physical Exam Vitals: Vital Signs Temp Pulse Pulse Resp BP BP Pulse Ox 06/05/19 09:15 97.6 F 72 16 126/54 94 L 06/05/19 08:40 67 16 132/76 99 06/05/19 06:19 18 128/63 100 06/05/19 04:19 98.5 F 91 18 135/69 95 Intake and Output 06/04/19 06/05/19 06/05/19 22:59 06:59 14:59 Other: Voiding Method Indwelling Catheter Weight 64.41 kg Results CBC & Chem 7: 06/05/19 07:24 06/05/19 07:24 Labs: Abnormal Lab Results - Last 24 Hours (Table) 06/05/19 06/05/19 Range/Units 07:24 07:24 WBC 19.6 H (3.8-10.6) k/uL RBC 2.41 L (4.30-5.90) m/uL Hgb 7.8 L (13.0-17.5) gm/dL Hct 22.2 L (39.0-53.0) % Neutrophils # 16.9 H (1.3-7.7) k/uL Lymphocytes # 0.8 L (1.0-4.8) k/uL Monocytes # 1.5 H (0-1.0) k/uL Sodium 131 L (137-145) mmol/L Glucose 109 H (74-99) mg/dL Microbiology - Last 24 Hours (Table) 06/05/19 06:24 Urine Culture - Preliminary Urine,Catheterized
[2019-06-06] MEDS: ASPIRIN 81 MG PO SCH (09:19)
[2019-06-06] MEDS: MULTIVITAMINS, THERA 1 EACH TAB PO SCH (09:24)
[2019-06-06] MEDS: OXYBUTYNIN XL 5 MG TAB.ER.24 PO SCH (09:24)
[2019-06-06] MEDS: CIPROFLOXACIN HCL 500 MG TAB PO SCH ×2 (09:24→19:59)
[2019-06-06 10:20] LABS: Basophils % (A) 0 %; Eosinophils # (A) 0.2 k/uL (0-0.7); Eosinophils % (A) 2 %; HCT 21.7 % (39.0-53.0); HGB 7.4 gm/dL (13.0-17.5); Lymphocytes # (A) 0.6 k/uL (1.0-4.8); Lymphocytes % (A) 6 %; MCH 32.2 pg (25.0-35.0); MCHC 33.9 g/dL (31.0-37.0); Mean Platelet Volume 7.7; Monocytes % (A) 9 %; Neutrophils # (A) 9.4 k/uL (1.3-7.7); Neutrophils % (A) 82 %; Platelet Count 309 k/uL (150-450); Poikilocytosis Slight; RBC 2.29 m/uL (4.30-5.90); RDW 14.8 % (11.5-15.5); WBC 11.5 k/uL (3.8-10.6)
--- NOTE | 2019-06-06 13:56 | P.GSCN ---
History of Present Illness Consult date: 06/06/19 Reason for Consult: Gross Hematuria History of present illness: Mr. 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 Patient was recently admitted for gross hematuria requiring blood transfusion and he was taken to the OR for cystoscopy and clot evacuation on 06/03. He was subsquently discharge home with ibarra on 06/04. Since been discharge from hospital family has been complaining he is weaker than usual, additionally he is been having leakage around the catheter and intermittent gross hematuria. Of note patient has been pulling intermittently on his catheter. Family is interested in having patient go to [facility]. Review of Systems limited secondary to patient dementia - Constitutional Reports weakness, Denies chills, Denies fever - Respiratory Denies cough, Denies dyspnea - Gastrointestinal Denies abdominal pain, Denies nausea, Denies vomiting - Genitourinary Reports hematuria, Denies dysuria - Neurological Reports confusion, Reports weakness Past Medical History Past Medical History: Hyperlipidemia Additional Past Medical History / Comment(s): prostate issues, right ear hard of hearing, dementia History of Any Multi-Drug Resistant Organisms: None Reported Past Surgical History: Bladder Surgery Additional Past Surgical History / Comment(s): prostate surgery Past Psychological History: No Psychological Hx Reported Smoking Status: Never smoker Past Alcohol Use History: None Reported Past Drug Use History: None Reported Medications and Allergies Home Medications Medication Instructions Recorded Confirmed Type Aspirin EC [Ecotrin Low Dose] 81 mg PO DAILY 05/31/19 06/05/19 History Calcium 500mg 500 mg PO SA 05/31/19 06/05/19 History Ciprofloxacin HCl [Cipro] 500 mg PO Q12HR 05/31/19 06/05/19 History Donepezil [Aricept] 10 mg PO HS 05/31/19 06/05/19 History Memantine [Namenda] 10 mg PO HS 05/31/19 06/05/19 History Montelukast [Singulair] 10 mg PO HS PRN 05/31/19 06/05/19 History Multivitamins, Thera [Multivitamin 1 tab PO DAILY 05/31/19 06/05/19 History (formulary)] Pravastatin Sodium [Pravachol] 40 mg PO HS 05/31/19 06/05/19 History Tolterodine ER [Detrol LA] 2 mg PO DAILY #10 cap.er.24h 06/04/19 06/05/19 Rx Melatonin 5 mg PO HS PRN 06/05/19 06/05/19 History Allergies Allergy/AdvReac Type Severity Reaction Status Date / Time No Known Allergies Allergy Verified 06/05/19 07:44 Surgical - Exam Vital Signs Temp Pulse Resp BP Pulse Ox 98.5 F 91 18 135/69 95 06/05/19 04:19 06/05/19 04:19 06/05/19 04:19 06/05/19 04:19 06/05/19 04:19 - General no distress, no pain - ENT normal nares, normal mucosa - Respiratory normal expansion, normal respiratory effort - Abdomen Abdomen: soft, non tender, no distended - Genitourinary ibarra in placed draining light red urine w/o clots normal penis with no external lesions - Psychiatric oriented to person Results - Labs 06/06/19 10:05 06/05/19 07:24 Abnormal Lab Results - Last 24 Hours (Table) 06/06/19 Range/Units 10:05 WBC 11.5 H (3.8-10.6) k/uL RBC 2.29 L (4.30-5.90) m/uL Hgb 7.4 L (13.0-17.5) gm/dL Hct 21.7 L (39.0-53.0) % Neutrophils # 9.4 H (1.3-7.7) k/uL Lymphocytes # 0.6 L (1.0-4.8) k/uL Microbiology - Last 24 Hours (Table) 06/05/19 06:24 Urine Culture - Final Urine,Catheterized Assessment and Plan Assessment: 78 yo male with hx of Radiation cystitis, recently admitted with acute blood loss anemia secondary to his hematuria requiring blood transfusion and OR for cystoscopy and clot evacuation. readmitted to the hospital due to weakness intermittent gross hematuria, and family interested in having patient placed in [facility] Plan: -Ibarra draining without issues, can irrigate ibarra PRN if hematuric. His hematuria is secondary to patient pulling on ibarra. -Can use Ditropan PRN for bladder spams, but discussed with patient daughter this can increase his confusion -Continue Cipro
[2019-06-06] MEDS ORDERED: risperiDONE 0.5 MG TAB PO STA (18:00)
[2019-06-06] MEDS: MEMANTINE 10 MG TAB PO SCH (19:59)
[2019-06-06] MEDS: DONEPEZIL 10 MG TAB PO SCH (19:59)
[2019-06-06] MEDS: PRAVASTATIN SODIUM 40 MG TAB PO SCH (19:59)
[2019-06-06] MEDS ORDERED: HALOPERIDOL LACTATE 5 MG/ML 1 ML VIAL IM ONE (21:27)
--- NOTE | 2019-06-06 22:16 | P.PN ---
Progress Note - Text Progress Note Date: 06/06/19 Chief Complaint: Block Franco catheter interval history: This is a pleasant 78-year-old patient of Dr. Chandan Segura. Patient had a prior radiation treatment to the prostate for prostate cancer. Patient is having severe hematuria not being controlled by Franco catheter and was admitted to the hospital for 5 days being discharged yesterday. On June 03 patient underwent cystoscopy with cauterization of bleeding vessels. Mccarley to be from underlying radiation cystitis. Patient was discharged home yesterday. Normally patient is able to get about. Since he's been in the hospital is not really able to walk much , was very weak and tired. Also the Franco catheter was blocked and urine was leaking around it. Since he had come in for a catheter was adjusted and he started making urine. There is no blood in the same. Patient is barely able to make it around right now. Patient's has dementia with able to carry out a simple conversation patient's son is the bedside. They looking at The patient to rehab. Denies any chest pain palpitations or dizziness dizziness and tired able to tolerate some diet. Denies any abdominal pain. No fever or chills. today-laying in bed. Did tolerate his diet. at the bedside. Later was called and patient was getting a bit agitated and more confused. had to order Haldol IM. Review of systems: Was done for constitutional, cardiovascular, GI, pulmonary. relevant finding as above Active Medications Acetaminophen (Tylenol Tab) 650 mg PO Q6HR PRN PRN Reason: Mild Pain or Fever > 100.5 Last Admin: 06/06/19 14:38 Dose: 650 mg Documented by: Aspirin (Aspirin) 81 mg PO DAILY [facility] Last Admin: 06/06/19 09:19 Dose: Not Given Documented by: Calcium Carbonate/Glycine (Tums) 500 mg PO SA [facility] Last Admin: 06/05/19 10:46 Dose: 500 mg Documented by: Ciprofloxacin (Cipro) 500 mg PO Q12HR [facility] Stop: 06/09/19 21:01 Last Admin: 06/06/19 19:59 Dose: 500 mg Documented by: Donepezil HCl (Aricept) 10 mg PO [facility] Last Admin: 06/06/19 19:59 Dose: 10 mg Documented by: Memantine (Namenda) 10 mg PO [facility] Last Admin: 06/06/19 19:59 Dose: 10 mg Documented by: Montelukast Sodium (Singulair) 10 mg PO HS PRN PRN Reason: Allergy Symptoms Multivitamins (Theragran) 1 each PO DAILY [facility] Last Admin: 06/06/19 09:24 Dose: 1 each Documented by: Naloxone HCl (Narcan) 0.2 mg IV Q2M PRN PRN Reason: Opioid Reversal Oxybutynin Chloride (Ditropan Xl) 5 mg PO DAILY [facility] Last Admin: 06/06/19 09:24 Dose: 5 mg Documented by: Pravastatin Sodium (Pravachol) 40 mg PO HS [facility] Last Admin: 06/06/19 19:59 Dose: 40 mg Documented by: Physical examination: VITAL SIGNS: 98.4, 80, 16, 105/58, 97% GENERAL:laying in bed, comfortable EYES: [Pupils equal. Conjunctiva pale. HEENT: External appearance of nose and ears normal, oral cavity grossly normal decreased hearing. NECK: JVD not raised; masses not palpable. HEART: First and second heart sounds are normal; no edema. LUNGS: Respiratory rate normal; clear to auscultation. ABDOMEN: Soft, nontender, liver spleen not palpable, no masses palpable. Franco catheter PSYCH: [Patient is able to answer simple questions l. 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 Looking for the patient to go to ECF.patient did require a dose of IM Haldol. See how he does.
--- NOTE | 2019-06-07 08:08 | P.PN ---
Subjective this is a pleasant 78 years old male with past medical history of dementia and prostate cancer was recently in the hospital for hisgross hematuria that has been evaluated by urologist, during recent admission he got blood transfusion and he got clot evacuation on 06/03 via cystoscopy, patient was discharge home on 06/04 before his been brought by family for have difficulty taking care of him as well as his mental status deterioration. On admission patient was placed on Franco catheter with hematuria, also he was started on low dose of Cipro. this morning I met with the patient and daughter at bedside, patient still lethargic, he opens eyes spontaneously and he couldn't recognize his daughter however he thought he is at home and in his own city at [place], and he also does not know why he is in the hospital. However he is calm and complaining only for mild pain in the lower abdomen. He has some suprapubic tenderness and Franco catheter with the-colored urine. As per my discussion with her daughter this morning and dressing with subacute rehab with extended to stay for possible placement. Physical therapy already been consulted and health and social care teacher is on the case as well. discussed with staff and family Review of systems CONSTITUTIONAL: No fever, no malaise, no fatigue. HEENT: No recent visual problems or hearing problems. Denied any sore throat. CARDIOVASCULAR: No orthopnea, PND, no palpitations, no syncope. PULMONARY: No shortness of breath, no cough, no hemoptysis. GASTROINTESTINAL: No diarrhea, no nausea, no vomiting, no abdominal pain. Normoactive bowel sounds. NEUROLOGICAL: No headaches, no weakness, no numbness. HEMATOLOGICAL: Denies any bleeding or petechiae. MUSCULOSKELETAL/RHEUMATOLOGICAL: Denies any joint pain, swelling, or any muscle pain. ENDOCRINE: Denies any polyuria or polydipsia. Active Medications Generic Name Dose Route Start Last Admin Trade Name Freq PRN Reason Stop Dose Admin Acetaminophen 650 mg 06/05/19 07:21 06/06/19 14:38 Tylenol Tab PO 650 mg Q6HR PRN Administration Mild Pain or Fever > 100.5 Aspirin 81 mg 06/05/19 09:00 06/06/19 09:19 Aspirin PO Not Given DAILY ZUHAIR Calcium Carbonate/Glycine 500 mg 06/05/19 09:00 06/05/19 10:46 Tums PO 500 mg SA ZUHAIR Administration Ciprofloxacin 500 mg 06/05/19 09:00 06/06/19 19:59 Cipro PO 06/09/19 21:01 500 mg Q12HR ZUHAIR Administration Donepezil HCl 10 mg 06/05/19 21:00 06/06/19 19:59 Aricept PO 10 mg HS ZUAHIR Administration Memantine 10 mg 06/05/19 21:00 06/06/19 19:59 Namenda PO 10 mg HS ZUHAIR Administration Montelukast Sodium 10 mg 06/05/19 07:25 Singulair PO HS PRN Allergy Symptoms Multivitamins 1 each 06/05/19 09:00 06/06/19 09:24 Theragran PO 1 each DAILY ZUHAIR Administration Naloxone HCl 0.2 mg 06/05/19 07:21 Narcan IV Q2M PRN Opioid Reversal Oxybutynin Chloride 5 mg 06/05/19 09:00 06/06/19 09:24 Ditropan Xl PO 5 mg DAILY ZUHAIR Administration Pravastatin Sodium 40 mg 06/05/19 21:00 06/06/19 19:59 Pravachol PO 40 mg HS ZUHAIR Administration Objective - Vital Signs Vital signs: Vital Signs Temp 97.8 F 06/07/19 06:54 Pulse 88 06/07/19 06:54 Resp 18 06/07/19 06:54 BP 112/57 06/07/19 06:54 Pulse Ox 97 06/07/19 06:54 Intake & Output 06/06/19 06/07/19 06/07/19 18:59 06:59 18:59 Intake Total 540 Output Total 402 1200 Balance 138 -1200 Intake: Oral 540 Output: Urine 400 1200 Stool 2 Other: Voiding Method Indwelling Catheter Indwelling Catheter # Bowel Movements 4 - Exam -GENERAL: The patient is alert and oriented x0-1, not in any acute distress. Well developed, well nourished. HEENT: Pupils are round and equally reacting to light. EOMI. No scleral icterus. No conjunctival pallor. Normocephalic, atraumatic. No pharyngeal erythema. No thyromegaly. CARDIOVASCULAR: S1 and S2 present. No murmurs, rubs, or gallops. PULMONARY: Chest is clear to auscultation, no wheezing or crackles. -ABDOMEN: Soft,suprapubic tenderness with no guarding or rebound tenderness, nondistended, normoactive bowel sounds. No palpable organomegaly. Franco catheter is in place MUSCULOSKELETAL: No joint swelling or deformity. EXTREMITIES: No cyanosis, clubbing, or pedal edema. NEUROLOGICAL: Gross neurological examination did not reveal any focal deficits. SKIN: No rashes. no petechiae. - Labs CBC & Chem 7: 06/06/19 10:05 06/05/19 07:24 Labs: Abnormal Lab Results - Last 24 Hours (Table) 06/06/19 Range/Units 10:05 WBC 11.5 H (3.8-10.6) k/uL RBC 2.29 L (4.30-5.90) m/uL Hgb 7.4 L (13.0-17.5) gm/dL Hct 21.7 L (39.0-53.0) % Neutrophils # 9.4 H (1.3-7.7) k/uL Lymphocytes # 0.6 L (1.0-4.8) k/uL Microbiology - Last 24 Hours (Table) 06/05/19 06:24 Urine Culture - Final Urine,Catheterized Assessment and Plan Assessment: -gross hematuria related to radiation cystitis with possible infectious elements -Acute blood loss anemia -Metabolic encephalopathy, secondary to above -Prostate cancer --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 Continue with Franco catheter. Continue with Cipro antibiotic. Continue with Detrol plan for bladder spasm.follow-up leukocytes. Labs and medication were reviewed.. Continue same treatment. Continue with symptomatic treatment. Resume home medication. Monitor lytes and vitals. DVT and GI prophylaxis. Further recommendations of the clinical course of the patient DVT prophylaxis: no anticoagulation in view of gross hematuria and severe anemia. Continue with mechanical SCDs GI Prophylaxis: Pepcid PT/OT: Pending Prognosis is guarded
[2019-06-07 08:34] LABS: Basophils # (A) 0.1 k/uL (0-0.2); Basophils % (A) 1 %; Eosinophils # (A) 0.3 k/uL (0-0.7); Eosinophils % (A) 4 %; HCT 23.6 % (39.0-53.0); HGB 7.8 gm/dL (13.0-17.5); Hypochromasia Slight; Lymphocytes # (A) 0.9 k/uL (1.0-4.8); Lymphocytes % (A) 10 %; MCH 31.3 pg (25.0-35.0); MCHC 32.9 g/dL (31.0-37.0); Mean Platelet Volume 7.2; Monocytes # (A) 0.7 k/uL (0-1.0); Monocytes % (A) 8 %; Neutrophils # (A) 6.6 k/uL (1.3-7.7); Neutrophils % (A) 75 %; Platelet Count 378 k/uL (150-450); Poikilocytosis Slight; RBC 2.49 m/uL (4.30-5.90); RDW 14.4 % (11.5-15.5); WBC 8.8 k/uL (3.8-10.6)
[2019-06-07 08:43] LABS: INR 0.9 (<1.2); Partial Thromboplastin Time 23.6 sec (22.0-30.0); Prothrombin Time 9.7 sec (9.0-12.0)
[2019-06-07 08:52] LABS: ALT 29 U/L (4-49); AST 44 U/L (17-59); African American GFR (CKD) >90 (>60 ml/min/1.73 sqM); Albumin 2.8 g/dL (3.5-5.0); Alkaline Phosphatase 50 U/L (38-126); Anion Gap 6 mmol/L; Bilirubin, Delta 0.1 mg/dL (0.0-0.2); Bilirubin,Unconjugated 1.1 mg/dL (0.0-1.1); Blood Urea Nitrogen 12 mg/dL (9-20); Calcium 8.4 mg/dL (8.4-10.2); Carbon Dioxide 28 mmol/L (22-30); Chloride 101 mmol/L (98-107); Glucose 99 mg/dL (74-99); Non-African American GFR(CKD) 81 (>60 ml/min/1.73 sqM); Potassium 3.9 mmol/L (3.5-5.1); Sodium 135 mmol/L (137-145); Total Bilirubin 1.2 mg/dL (0.2-1.3)
[2019-06-07] MEDS ORDERED: FAMOTIDINE 20 MG/2 ML VIAL IV SCH (09:00)
[2019-06-07] MEDS: OXYBUTYNIN XL 5 MG TAB.ER.24 PO SCH (09:16)
[2019-06-07] MEDS: MULTIVITAMINS, THERA 1 EACH TAB PO SCH (09:16)
[2019-06-07] MEDS: CIPROFLOXACIN HCL 500 MG TAB PO SCH ×2 (09:16→20:58)
[2019-06-07] MEDS: ASPIRIN 81 MG PO SCH (09:16)
[2019-06-07] MEDS: PANTOPRAZOLE 40 MG TABLET PO SCH (17:44)
[2019-06-07] MEDS: PRAVASTATIN SODIUM 40 MG TAB PO SCH (20:58)
[2019-06-07] MEDS: MEMANTINE 10 MG TAB PO SCH (20:58)
[2019-06-07] MEDS: DONEPEZIL 10 MG TAB PO SCH (20:58)
--- NOTE | 2019-06-08 08:19 | P.PN ---
Subjective this is a pleasant 78 years old male with past medical history of dementia and prostate cancer was recently in the hospital for hisgross hematuria that has been evaluated by urologist, during recent admission he got blood transfusion and he got clot evacuation on 06/03 via cystoscopy, patient was discharge home on 06/04 before his been brought by family for have difficulty taking care of him as well as his mental status deterioration. On admission patient was placed on Franco catheter with hematuria, also he was started on low dose of Cipro. this morning I met with the patient and daughter at bedside, patient still lethargic, he opens eyes spontaneously and he couldn't recognize his daughter however he thought he is at home and in his own city at [place], and he also does not know why he is in the hospital. However he is calm and complaining only for mild pain in the lower abdomen. He has some suprapubic tenderness and Franco catheter with the-colored urine. As per my discussion with her daughter this morning and dressing with subacute rehab with extended to stay for possible placement. Physical therapy already been consulted and social professionals is on the case as well. discussed with staff and family 06/08/2019 Patient is calm with no agitation since yesterday including last night. Patient notes no abdominal pain. No chest pain or dyspnea. He is awake and answering questions appropriately although his baseline confusion due to dementia.patient is afebrile signs vitals are stable. His leukocytosis improved down to 8.8K yesterday. Hemoglobin stable yesterday. Labs from today are pending. However patient is still having hematuria with bright red colored urine. No suprapubic tenderness. Franco catheter still in place. As per staff patient is agitated at times and he is taking and pulling his Franco which might contribute to his ongoing hematuria. His aspirin 81 mg will be held today. Patient has been evaluated by urologist. Once stable the patient will be discharged for ECF for rehab/placement her family request. Objective - Vital Signs Vital signs: Vital Signs Temp 98.3 F 06/08/19 07:00 Pulse 99 06/08/19 07:00 Resp 18 06/08/19 07:00 BP 92/57 06/08/19 07:00 Pulse Ox 95 06/08/19 07:00 Intake & Output 06/07/19 06/08/19 06/08/19 18:59 06:59 18:59 Intake Total 300 100 Output Total 402 400 Balance -102 -300 Intake: Oral 300 100 Output: Urine 400 400 Stool 2 Other: Voiding Method Indwelling Catheter Indwelling Catheter # Bowel Movements 0 - Exam -GENERAL: The patient is alert and oriented x0-1, not in any acute distress. Well developed, well nourished. HEENT: Pupils are round and equally reacting to light. EOMI. No scleral icterus. No conjunctival pallor. Normocephalic, atraumatic. No pharyngeal erythema. No thyromegaly. CARDIOVASCULAR: S1 and S2 present. No murmurs, rubs, or gallops. PULMONARY: Chest is clear to auscultation, no wheezing or crackles. -ABDOMEN: Soft,suprapubic tenderness with no guarding or rebound tenderness, nondistended, normoactive bowel sounds. No palpable organomegaly. Franco catheter is in place MUSCULOSKELETAL: No joint swelling or deformity. EXTREMITIES: No cyanosis, clubbing, or pedal edema. NEUROLOGICAL: Gross neurological examination did not reveal any focal deficits. SKIN: No rashes. no petechiae. 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 Continue with Franco catheter. Continue with Cipro antibiotic. Continue with Detrol plan for bladder spasm.follow-up leukocytes.hold aspirin Labs and medication were reviewed.. Continue same treatment. Continue with symptomatic treatment. Resume home medication. Monitor lytes and vitals. DVT and GI prophylaxis. Further recommendations of the clinical course of the patient DVT prophylaxis: no anticoagulation in view of gross hematuria and severe anemia. Continue with mechanical SCDs GI Prophylaxis: Pepcid PT/OT: Pending Prognosis is guarded
[2019-06-08] MEDS: OXYBUTYNIN XL 5 MG TAB.ER.24 PO SCH (08:38)
[2019-06-08] MEDS: MULTIVITAMINS, THERA 1 EACH TAB PO SCH (08:38)
[2019-06-08] MEDS: CIPROFLOXACIN HCL 500 MG TAB PO SCH ×2 (08:38→21:49)
[2019-06-08] MEDS: PANTOPRAZOLE 40 MG TABLET PO SCH ×2 (08:38→17:32)
[2019-06-08 08:47] LABS: Basophils % (A) 0 %; Eosinophils # (A) 0.3 k/uL (0-0.7); Eosinophils % (A) 3 %; HCT 20.9 % (39.0-53.0); Hypochromasia Slight; Lymphocytes % (A) 10 %; MCH 31.3 pg (25.0-35.0); MCHC 33.3 g/dL (31.0-37.0); Mean Platelet Volume 7.1; Monocytes # (A) 0.9 k/uL (0-1.0); Monocytes % (A) 9 %; Neutrophils # (A) 7.7 k/uL (1.3-7.7); Neutrophils % (A) 75 %; Platelet Count 457 k/uL (150-450); Poikilocytosis Moderate; RBC 2.23 m/uL (4.30-5.90); RDW 14.2 % (11.5-15.5); WBC 10.3 k/uL (3.8-10.6)
[2019-06-08] MEDS ORDERED: MELATONIN 5 MG TABLET PO PRN (09:43)
[2019-06-08 13:07] LABS: HGB 7.2 gm/dL (13.0-17.5); Hypochromasia Slight; MCH 31.1 pg (25.0-35.0); MCHC 32.7 g/dL (31.0-37.0); MCV 95.1 fL (80.0-100.0); Mean Platelet Volume 7.5; Platelet Count 432 k/uL (150-450); Poikilocytosis Moderate; RBC 2.31 m/uL (4.30-5.90); RDW 14.1 % (11.5-15.5); WBC 9.4 k/uL (3.8-10.6)
--- NOTE | 2019-06-08 13:19 | P.PN ---
Progress Note - Text Progress Note Date: 06/08/19 The patient is afebrile and normotensive. He remains confused. He continues to have dark colored urine present draining from the bladder with occasional clots which have obstructed the catheter. His hemoglobin was 7.8 at the time of admission and is currently 7.2. The color of the blood draining from the bladder suggest that the majority of this is from clot which remains in the bladder. I discussed this with his nurse and his bladder will be irrigated on a regular basis in an attempt to remove any remaining clot.
[2019-06-08] MEDS ORDERED: HEPARIN SODIUM,PORCINE 5,000 UNIT/ML 1 ML VIAL SQ SCH (21:00)
[2019-06-08] MEDS: PRAVASTATIN SODIUM 40 MG TAB PO SCH (21:49)
[2019-06-08] MEDS: MEMANTINE 10 MG TAB PO SCH (21:49)
[2019-06-08] MEDS: DONEPEZIL 10 MG TAB PO SCH (21:49)
[2019-06-09] MEDS: OXYBUTYNIN XL 5 MG TAB.ER.24 PO SCH (07:42)
[2019-06-09] MEDS: CIPROFLOXACIN HCL 500 MG TAB PO SCH ×2 (07:42→20:13)
[2019-06-09] MEDS: FERROUS SULFATE 325 MG TAB PO SCH ×3 (07:42→17:32)
[2019-06-09] MEDS: PANTOPRAZOLE 40 MG TABLET PO SCH ×2 (07:42→17:32)
[2019-06-09] MEDS: MULTIVITAMINS, THERA 1 EACH TAB PO SCH (07:42)
[2019-06-09 07:50] LABS: Calcium 8.2 mg/dL (8.4-10.2); Potassium 4.1 mmol/L (3.5-5.1)
[2019-06-09 07:51] LABS: Basophils # (A) 0.1 k/uL (0-0.2); Basophils % (A) 1 %; Eosinophils # (A) 0.4 k/uL (0-0.7); Eosinophils % (A) 4 %; HCT 20.3 % (39.0-53.0); Hypochromasia Moderate; Lymphocytes # (A) 1.1 k/uL (1.0-4.8); Lymphocytes % (A) 12 %; MCHC 31.9 g/dL (31.0-37.0); Mean Platelet Volume 7.1; Monocytes # (A) 0.9 k/uL (0-1.0); Monocytes % (A) 10 %; Neutrophils # (A) 6.3 k/uL (1.3-7.7); Neutrophils % (A) 70 %; Platelet Count 436 k/uL (150-450); Poikilocytosis Moderate; RBC 2.16 m/uL (4.30-5.90); RDW 14.4 % (11.5-15.5)
[2019-06-09 08:24] LABS: HGB 6.5 gm/dL (13.0-17.5)
--- NOTE | 2019-06-09 08:40 | P.PN ---
Subjective this is a pleasant 78 years old male with past medical history of dementia and prostate cancer was recently in the hospital for hisgross hematuria that has been evaluated by urologist, during recent admission he got blood transfusion and he got clot evacuation on 06/03 via cystoscopy, patient was discharge home on 06/04 before his been brought by family for have difficulty taking care of him as well as his mental status deterioration. On admission patient was placed on Franco catheter with hematuria, also he was started on low dose of Cipro. this morning I met with the patient and daughter at bedside, patient still lethargic, he opens eyes spontaneously and he couldn't recognize his daughter however he thought he is at home and in his own city at [place], and he also does not know why he is in the hospital. However he is calm and complaining only for mild pain in the lower abdomen. He has some suprapubic tenderness and Franco catheter with the-colored urine. As per my discussion with her daughter this morning and dressing with subacute rehab with extended to stay for possible placement. Physical therapy already been consulted and social secretary is on the case as well. discussed with staff and family 06/08/2019 Patient is calm with no agitation since yesterday including last night. Patient notes no abdominal pain. No chest pain or dyspnea. He is awake and answering questions appropriately although his baseline confusion due to dementia.patient is afebrile signs vitals are stable. His leukocytosis improved down to 8.8K yesterday. Hemoglobin stable yesterday. Labs from today are pending. However patient is still having hematuria with bright red colored urine. No suprapubic tenderness. Franco catheter still in place. As per staff patient is agitated at times and he is taking and pulling his Franco which might contribute to his ongoing hematuria. His aspirin 81 mg will be held today. Patient has been evaluated by urologist. Once stable the patient will be discharged for ECF for rehab/placement her family request. 06/09/2019 Patient is awake and making appropriate conversation, he is calm, he has an uneventful overnight. After with dark red urine. urologist recommended bladder irrigation which is being done by the nurses including this morning. His repeat hemoglobin, down to 6.5, 1 unit of blood transfusion is provided, risks and benefits and alternatives are explained to the daughter at bedside and she wants to wait with blood transfusion till urologist first evaluated the patient. But risks of waiting are also explained for the patient and family at bedside. Iron pills are still darted and laxative as needed for constipation. Discussed with staff Objective - Vital Signs Vital signs: Vital Signs Temp 98.7 F 06/09/19 05:23 Pulse 100 06/09/19 05:23 Resp 15 06/09/19 05:23 BP 110/63 06/09/19 05:23 Pulse Ox 96 06/09/19 05:23 Intake & Output 06/08/19 06/09/19 06/09/19 18:59 06:59 18:59 Intake Total 1480 Output Total 1102 850 Balance 378 -850 Intake: Oral 1480 Output: Urine 1100 850 Uretheral (Franco) 700 Stool 2 Other: Voiding Method Indwelling Catheter Indwelling Catheter # Voids 900 # Bowel Movements 2 - Exam -GENERAL: The patient is alert and oriented x0-1, not in any acute distress. Well developed, well nourished. HEENT: Pupils are round and equally reacting to light. EOMI. No scleral icterus. No conjunctival pallor. Normocephalic, atraumatic. No pharyngeal erythema. No thyromegaly. CARDIOVASCULAR: S1 and S2 present. No murmurs, rubs, or gallops. PULMONARY: Chest is clear to auscultation, no wheezing or crackles. -ABDOMEN: Soft,suprapubic tenderness with no guarding or rebound tenderness, nondistended, normoactive bowel sounds. No palpable organomegaly. Franco catheter is in place MUSCULOSKELETAL: No joint swelling or deformity. EXTREMITIES: No cyanosis, clubbing, or pedal edema. NEUROLOGICAL: Gross neurological examination did not reveal any focal deficits. SKIN: No rashes. no petechiae. 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 Continue with Franco catheter. Continue with Cipro antibiotic. Continue with Detrol plan for bladder spasm.follow-up leukocytes.hold aspirin. Transfuse 1 uint blood and monitor hemoglobin if family agrees Labs and medication were reviewed.. Continue same treatment. Continue with symptomatic treatment. Resume home medication. Monitor lytes and vitals. DVT and GI prophylaxis. Further recommendations of the clinical course of the patient DVT prophylaxis: no anticoagulation in view of gross hematuria and severe an emia. Continue with mechanical SCDs GI Prophylaxis: Pepcid PT/OT: Pending Prognosis is guarded
--- NOTE | 2019-06-09 12:51 | P.PN ---
Progress Note - Text Progress Note Date: 06/09/19 The patient is afebrile and normotensive. He seems more alert remains confused. He continues to have dark blood draining from the catheter but only a few small clots could be irrigated from the catheter by me this morning. His hemoglobin was 6.5 and in view of this he will receive 1 more unit of packed cells. If his hematuria persists then tomorrow I will perform cystoscopy under anesthesia for repeat cautery of the apparent bleeding vessels.
[2019-06-09] MEDS: MEMANTINE 10 MG TAB PO SCH (20:13)
[2019-06-09] MEDS: DONEPEZIL 10 MG TAB PO SCH (20:13)
[2019-06-09] MEDS: PRAVASTATIN SODIUM 40 MG TAB PO SCH (20:13)
[2019-06-09 20:38] LABS: Basophils % (A) 1 %; Eosinophils # (A) 0.3 k/uL (0-0.7); Eosinophils % (A) 3 %; HCT 22.7 % (39.0-53.0); HGB 7.5 gm/dL (13.0-17.5); Hypochromasia Moderate; Lymphocytes # (A) 1.2 k/uL (1.0-4.8); Lymphocytes % (A) 12 %; MCH 30.8 pg (25.0-35.0); MCHC 33.1 g/dL (31.0-37.0); Mean Platelet Volume 7.2; Monocytes % (A) 10 %; Neutrophils % (A) 71 %; Platelet Count 459 k/uL (150-450); Poikilocytosis Marked; RBC 2.44 m/uL (4.30-5.90); RDW 14.6 % (11.5-15.5); WBC 9.9 k/uL (3.8-10.6)
[2019-06-10] MEDS: FERROUS SULFATE 325 MG TAB PO SCH ×3 (07:35→16:25)
[2019-06-10] MEDS: PANTOPRAZOLE 40 MG TABLET PO SCH ×2 (07:35→16:25)
[2019-06-10] MEDS: MULTIVITAMINS, THERA 1 EACH TAB PO SCH (07:36)
--- NOTE | 2019-06-10 07:50 | P.PN ---
Subjective this is a pleasant 78 years old male with past medical history of dementia and prostate cancer was recently in the hospital for hisgross hematuria that has been evaluated by urologist, during recent admission he got blood transfusion and he got clot evacuation on 06/03 via cystoscopy, patient was discharge home on 06/04 before his been brought by family for have difficulty taking care of him as well as his mental status deterioration. On admission patient was placed on Franco catheter with hematuria, also he was started on low dose of Cipro. this morning I met with the patient and daughter at bedside, patient still lethargic, he opens eyes spontaneously and he couldn't recognize his daughter however he thought he is at home and in his own city at [place], and he also does not know why he is in the hospital. However he is calm and complaining only for mild pain in the lower abdomen. He has some suprapubic tenderness and Franco catheter with the-colored urine. As per my discussion with her daughter this morning and dressing with subacute rehab with extended to stay for possible placement. Physical therapy already been consulted and social scientist is on the case as well. discussed with staff and family 06/08/2019 Patient is calm with no agitation since yesterday including last night. Patient notes no abdominal pain. No chest pain or dyspnea. He is awake and answering questions appropriately although his baseline confusion due to dementia.patient is afebrile signs vitals are stable. His leukocytosis improved down to 8.8K yesterday. Hemoglobin stable yesterday. Labs from today are pending. However patient is still having hematuria with bright red colored urine. No suprapubic tenderness. Franco catheter still in place. As per staff patient is agitated at times and he is taking and pulling his Franco which might contribute to his ongoing hematuria. His aspirin 81 mg will be held today. Patient has been evaluated by urologist. Once stable the patient will be discharged for ECF for rehab/placement her family request. 06/09/2019 Patient is awake and making appropriate conversation, he is calm, he has an uneventful overnight. After with dark red urine. urologist recommended bladder irrigation which is being done by the nurses including this morning. His repeat hemoglobin, down to 6.5, 1 unit of blood transfusion is provided, risks and benefits and alternatives are explained to the daughter at bedside and she wants to wait with blood transfusion till urologist first evaluated the patient. But risks of waiting are also explained for the patient and family at bedside. Iron pills are still darted and laxative as needed for constipation. Discussed with staff 06/10/2019 Patient is mentally stable, his cultures at baseline as part of his dementia. He has persistent blood in urine through his Franco catheter. Patient planned to have cystoscopy today with Dr. Wolfe Discussed with daughter at bedside and she agrees with the plan Objective - Vital Signs Vital signs: Vital Signs Temp 98.9 F 06/10/19 04:25 Pulse 103 H 06/10/19 04:25 Resp 20 06/10/19 04:25 BP 104/56 06/10/19 06:20 Pulse Ox 99 06/10/19 04:25 Intake & Output 06/09/19 06/10/19 06/10/19 18:59 06:59 18:59 Intake Total 310 300 Output Total 1035 740 Balance -725 -440 Intake: Oral 300 Blood Product 310 Rc Pheresis 2 As3 Unit 310 [id number] Output: Urine 1035 740 Uretheral (Franco) 60 140 Other: Voiding Method Indwelling Catheter Indwelling Catheter # Bowel Movements 2 - Exam -GENERAL: The patient is alert and oriented x0-1, not in any acute distress. Well developed, well nourished. HEENT: Pupils are round and equally reacting to light. EOMI. No scleral icterus. No conjunctival pallor. Normocephalic, atraumatic. No pharyngeal erythema. No thyromegaly. CARDIOVASCULAR: S1 and S2 present. No murmurs, rubs, or gallops. PULMONARY: Chest is clear to auscultation, no wheezing or crackles. -ABDOMEN: Soft,suprapubic tenderness with no guarding or rebound tenderness, nondistended, normoactive bowel sounds. No palpable organomegaly. Franco catheter is in place MUSCULOSKELETAL: No joint swelling or deformity. EXTREMITIES: No cyanosis, clubbing, or pedal edema. NEUROLOGICAL: Gross neurological examination did not reveal any focal deficits. SKIN: No rashes. no petechiae. 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 Continue with Franco catheter. Continue with Cipro antibiotic. Continue with Detrol plan for bladder spasm.follow-up leukocytes.hold aspirin. Transfuse 1 uint blood and monitor hemoglobin if family agrees Labs and medication were reviewed.. Continue same treatment. Continue with symptomatic treatment. Resume home medication. Monitor lytes and vitals. DVT and GI prophylaxis. Further recommendations of the clinical course of the patient DVT prophylaxis: no anticoagulation in view of gross hematuria and severe anemia. Continue with mechanical SCDs GI Prophylaxis: Pepcid PT/OT: Pending Prognosis is guarded
[2019-06-10 08:58] LABS: Basophils % (A) 0 %; Eosinophils # (A) 0.3 k/uL (0-0.7); Eosinophils % (A) 3 %; HCT 23.1 % (39.0-53.0); HGB 7.6 gm/dL (13.0-17.5); Hypochromasia Moderate; Lymphocytes # (A) 1.1 k/uL (1.0-4.8); Lymphocytes % (A) 11 %; MCH 30.6 pg (25.0-35.0); MCHC 33.1 g/dL (31.0-37.0); MCV 92.5 fL (80.0-100.0); Mean Platelet Volume 7.1; Monocytes # (A) 0.9 k/uL (0-1.0); Monocytes % (A) 9 %; Neutrophils # (A) 7.3 k/uL (1.3-7.7); Neutrophils % (A) 74 %; Platelet Count 446 k/uL (150-450); Poikilocytosis Marked; RDW 14.9 % (11.5-15.5); WBC 9.9 k/uL (3.8-10.6)
[2019-06-10] MEDS ORDERED: LACTATED RINGERS 1,000 ML IV ONE (13:52)
[2019-06-10] MEDS ORDERED: fentaNYL (PF) 50 MCG/ML 2 ML AMP ONE (14:43)
[2019-06-10] MEDS ORDERED: PROPOFOL 10 MG/ML 20 ML VIAL IV ONE (14:43)
[2019-06-10] MEDS ORDERED: LIDOCAINE 1% INJ 10MG/ML (20 ML MDV) ONE (14:43)
--- NOTE | 2019-06-10 15:42 | P.OP ---
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 He was discharged on 06/04 at which time his urine was clear. He was readmitted on 06/05 due to weakness and recurrent gross hematuria. He has required bladder irrigation on several occasions and has been transfused with 1 unit of packed cells. Cystoscopy under anesthesia is planned due to the persistent hematuria. Description of Procedure: The patient was taken to the operating suite where adequate general anesthesia via LMA was instituted. He was placed in the dorsal lithotomy position with his legs suspended from padded Roc stirrups. Pneumatic compression stockings were applied to the lower legs. The patient's Franco catheter is removed. Penis and genital area were prepped with Betadine solution and draped in sterile fashion. The 25-Kyrgyz cystoscope sheath with 30 lens was passed through the urethra under direct vision. The anterior urethra was unremarkable. Prostatic urethra showed evidence of moderate lateral lobe enlargement. Ectatic vessels were present. There was some slight oozing at 12:00 and 4:00. Approximately 2 ounces of old clot was noted on the floor the bladder and this was irrigated from the bladder using the helical evacuator. The bladder was examined. There was heavy trabeculation with cellules. Ectatic vessels were noted especially near the bladder neck consistent with irradiation cystoscopy prostatitis. The remainder the bladder was free of tumor foreign body and diverticulum. Using the Bugbee electrode the oozing vessels at the bladder neck were cauterized. At completion the procedure hemostasis appeared excellent. The cystoscope was withdrawn. An 18-Kyrgyz Franco catheter was inserted and left to gravity drainage. The patient tolerated the procedure well and left the operative room awake and in satisfactory condition. Blood loss during the procedure was less than 2 mL. The patient's catheter will be left in place until 06/14. It is anticipated that he will be discharged to a custodial tomorrow provided his urine is clear. The catheter can be irrigated if necessary prior to removal but if more than a minimal amount of blood is in the urine the catheter should be left in place on 06/14 and our office contacted. If the patient continues to do well a urine culture should be obtained 2 days following removal of the catheter and the results faxed to my office. He should remain off aspirin until at least 3 or 4 days following removal of the catheter.
[2019-06-10] MEDS: OXYBUTYNIN XL 5 MG TAB.ER.24 PO SCH (16:25)
[2019-06-10] MEDS: PRAVASTATIN SODIUM 40 MG TAB PO SCH (22:24)
[2019-06-10] MEDS: DONEPEZIL 10 MG TAB PO SCH (22:24)
[2019-06-10] MEDS: MEMANTINE 10 MG TAB PO SCH (22:24)
[2019-06-11 01:39] VITALS: RESP 16
[2019-06-11 07:40] VITALS: BP 105/63; PULSE 76; TEMP 98.6
[2019-06-11] MEDS: PANTOPRAZOLE 40 MG TABLET PO SCH (08:28)
[2019-06-11] MEDS: MULTIVITAMINS, THERA 1 EACH TAB PO SCH (08:28)
[2019-06-11] MEDS: FERROUS SULFATE 325 MG TAB PO SCH ×2 (08:28→13:07)
[2019-06-11] MEDS: OXYBUTYNIN XL 5 MG TAB.ER.24 PO SCH (08:28)
[2019-06-11 08:48] LABS: Basophils % (A) 0 %; Eosinophils % (A) 0 %; HGB 8.4 gm/dL (13.0-17.5); Hypochromasia Moderate; Lymphocytes # (A) 1.3 k/uL (1.0-4.8); Lymphocytes % (A) 10 %; MCH 30.2 pg (25.0-35.0); MCHC 32.2 g/dL (31.0-37.0); MCV 93.6 fL (80.0-100.0); Monocytes # (A) 0.9 k/uL (0-1.0); Monocytes % (A) 7 %; Neutrophils % (A) 82 %; Platelet Count 550 k/uL (150-450); Poikilocytosis Marked; RBC 2.78 m/uL (4.30-5.90); WBC 13.4 k/uL (3.8-10.6)
[2019-06-11 09:49] VITALS: BMI 21.6
--- NOTE | 2019-06-11 11:30 | P.DS ---
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 Status post cystoscopy on 06/10 with cauterization of dictated blood vessels at the bladder neck and clot evacuation by Dr. Wolfe -Acute blood loss anemia, needing blood transfusion -Metabolic encephalopathy, secondary to above. 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 On admission patient was placed on Fitzpatrick catheter with hematuria, also he was started on low dose of Cipro. His urine culture came back negative and antibiotic was stopped. However hematuria persist even after stopping his baby aspirin. Urologist repeated cystoscopy on 06/10 with evacuation of clots and cauterization of dictated blood vessels at the neck bladder. Next a his urine is yellow clear with no gross bleeding. Repeat hemoglobin remains stable As per recommendation by urologist aspirin can be restarted after 3-4 days. However upon discussing this recommendation with patient and at bedside they were hesitant to start baby aspirin. Risks including but not limited to heart attacks and stroke, and/or are explained for the patient and and they verbalized understanding and they going to discuss it with his doctor outpatient before starting it. Also Dr. Wolfe the urologist recommended to repeat urine culture in 2 days and to fax the results to his office. Please contact Dr. Wolfe office at [phone] fax number and instructions. Patient was cleared for discharge by urologist Problems and management plan were discussed with the patient and he verbalized understanding and acceptance Patient was found stable and can be discharged home however he needs follow-up as an outpatient. Patient was instructed to follow up with PCP and his urologist within one week and patient agrees Gen: patient is a AAOx2-3, no distress CVS: S1-S2, RRR, no murmur Lungs: B/L CTA, no wheezing Abdomen: soft, no distention, no tenderness, positive bowel sounds. Fitzpatrick catheter is in a Place with clear yellow urine Extremity: no leg edema or induration Time spent more than 35 minutes Patient Condition at Discharge: Good Plan - Discharge Summary New Discharge Prescriptions: New Oxybutynin Xl [Ditropan XL] 5 mg PO DAILY tab.er.24 Ferrous Sulfate [Iron (65 MG Elemental)] 325 mg PO TID-W/MEALS tab Acetaminophen Tab [Tylenol] 650 mg PO Q6HR PRN tab PRN Reason: Mild Pain Or Fever > 100.5 Continue Multivitamins, Thera [Multivitamin (formulary)] 1 tab PO DAILY Pravastatin Sodium [Pravachol] 40 mg PO HS Montelukast [Singulair] 10 mg PO HS PRN PRN Reason: Allergy Symptoms Memantine [Namenda] 10 mg PO HS Donepezil [Aricept] 10 mg PO HS Calcium 500mg 500 mg PO SA Melatonin 5 mg PO HS PRN PRN Reason: Insomnia Discontinued Aspirin EC [Ecotrin Low Dose] 81 mg PO DAILY Ciprofloxacin HCl [Cipro] 500 mg PO Q12HR Tolterodine ER [Detrol LA] 2 mg PO DAILY #10 cap.er.24h Discharge Medication List Calcium 500mg 500 mg PO SA 05/31/19 [History] Donepezil [Aricept] 10 mg PO HS 05/31/19 [History] Memantine [Namenda] 10 mg PO HS 05/31/19 [History] Montelukast [Singulair] 10 mg PO HS PRN 05/31/19 [History] Multivitamins, Thera [Multivitamin (formulary)] 1 tab PO DAILY 05/31/19 [History] Pravastatin Sodium [Pravachol] 40 mg PO HS 05/31/19 [History] Melatonin 5 mg PO HS PRN 06/05/19 [History] Acetaminophen Tab [Tylenol] 650 mg PO Q6HR PRN tab 06/11/19 [Rx] Ferrous Sulfate [Iron (65 MG Elemental)] 325 mg PO TID-W/MEALS tab 06/11/19 [Rx] Oxybutynin Xl [Ditropan XL] 5 mg PO DAILY tab.er.24 06/11/19 [Rx] Follow up Appointment(s)/Referral(s): Hector Freeman DO [Primary Care Provider] - 1-2 days Eriberto Wolfe MD [STAFF PHYSICIAN] - 1 Week Patient Instructions/Handouts: Fitzpatrick Catheter Placement and Care (ED) Activity/Diet/Wound Care/Special Instructions: DC FITZPATRICK PER DR WOLFE after 10 days from 06/03, check for ability to void -Resume your previous diet -Activity is limited till you see your doctor Discharge instruction -Recommended to restart your baby aspirin dose after 4 days, your doctor. Her to restarting the aspirin -We recommend to repeat urine culture in 2 days and fax the results to Dr. Wolfe office, see contact information Discharge Disposition: TRANSFER TO SNF/ECF
[2019-06-12] MEDS ORDERED: TAMSULOSIN 0.4 MG CAP.ER.24H PO SCH (08:30)
== END 2019-06-11 13:50 | DRG 662 ==
LOC: EC 04:15 → 6NMEDSUR 07:21
PROVIDERS: ADMIT Hospitalist; ATTEND Hospitalist
PROC: 30233N1 Transfusion of Nonautologous Red Blood Cells into Peripheral Vein, Percutaneous Approach (ICD-10-PCS; 2019-06-09)
PROC: 0TCB8ZZ Extirpation of Matter from Bladder, Via Natural or Artificial Opening Endoscopic (ICD-10-PCS; 2019-06-10)
PROC: 0T7D8DZ Dilation of Urethra with Intraluminal Device, Via Natural or Artificial Opening Endoscopic (ICD-10-PCS; 2019-06-10)
PROC: 0W3R8ZZ Control Bleeding in Genitourinary Tract, Via Natural or Artificial Opening Endoscopic (ICD-10-PCS; principal; 2019-06-10 08:15)
DX: N30.41 Irradiation cystitis with hematuria (principal); G93.41 Metabolic encephalopathy; D62 Acute posthemorrhagic anemia; F05 Delirium due to known physiological condition; C61 Malignant neoplasm of prostate; E78.5 Hyperlipidemia, unspecified; F02.80 Dementia in other diseases classified elsewhere, unspecified severity, without behavioral disturbance, psychotic disturbance, mood disturbance, and anxiety; G30.1 Alzheimer's disease with late onset; H91.91 Unspecified hearing loss, right ear; N32.0 Bladder-neck obstruction; Z79.82 Long term (current) use of aspirin; Z79.899 Other long term (current) drug therapy; Z92.3 Personal history of irradiation; Y84.2 Radiological procedure and radiotherapy as the cause of abnormal reaction of the patient, or of later complication, without mention of misadventure at the time of the procedure
CPT/HCPCS: 36415; 80048; 80076; 85025; 85027; 85610; 85730; 86850; 86900; 86901; 86920; 87086; 99285